=== PATIENT | female | born 1995 | race Caucasian/White ===

== ENCOUNTER 2021-08-27 14:20 | Inpatient (IN) | payer BC, SELFPAY ==
[2021-08-27] VITALS (55 sets, daily range): BP systolic 91–187; BP diastolic 48–153; PULSE 73–96; RESP 18; TEMP 36.4–36.7; O2SAT 95–100; BMI 36.6
--- OUTSIDE RECORDS SUMMARY | 2021-08-27 14:40 | XMS_ITS ---
:1995 Author Allergies Code Code System Name Reaction Severity Status Onset 20360521 RxNorm Biaxin Hives ? Deactivated ? NKDA ? Medications Name Status Start Date Stop Date ? ? Afluria Qd 2019- (36 mos up)(PF)60 Completed ? 03/25/2020 mcg (15 mcg x4)/0.5 mL IM syringe amoxicillin 875 mg-potassium Completed ? clavulanate 125 mg tablet azithromycin 250 mg tablet Completed ? 09/16 bupropion HCl XL 150 mg 24 hr tablet, Active ? Not available extended release bupropion HCl XL 300 mg 24 hr tablet, Completed ? 09/16/2017 extended release cefdinir 300 mg capsule Completed ? 09/17/19 18 clomiphene citrate 50 mg tablet Completed ? 03/17/2018 Colace Unknown ? Not available OTC daily. Colace 100 mg capsule Unknown ? Not availa ble Take 1 capsule twice a day by oral route. for constipation. Epiduo 0.1 %-2.5 % topical gel with Completed ? 09/17/2016 pump ergocalciferol (vitamin D2) 1,250 mcg Completed ? 03/17/2019 (50,000 unit) capsule escitalopram 10 mg tablet Active ? Not av ailable escitalopram 20 mg tablet Completed ? 2017 TAKE ONE TABLET BY MOUTH DAILY etonogestrel 0.12 mg-ethinyl estradiol 0.015 mg/24 hr vaginal ri ng Active ? Not available I 1 RING VAGINALLY Q MONTH fluticasone propionate 50 mcg/actuation nasal spray,suspension C ompleted ? 09/16/2018 PRN
--- OUTSIDE RECORDS SUMMARY | 2021-08-27 14:40 | XMS_ITS ---
:1995 Author Care Team Providers Name Role Phone Menossi Primary Care Provider Unavailable Allergies Code Code System Name Reaction Severity Status Onset 20360521 RxNorm Biaxin Hives ? Deactivated ? NKDA ? Medications Name Status Start Date Stop Date ? ? Afluria Qd 2019- (36 mos Completed ? 03/25 up)(PF)60 mcg (15 mcg x4)/0.5 mL IM syringe amoxicillin 875 mg tablet Active ? Not av ailable TAKE 1 TABLET BY MOUTH EVERY 12 HOURS amoxicillin 875 mg-potassium clavulanate 125 mg tablet Active ? Not available TK 1 T PO Q 12 H azithromycin 250 mg tablet Active ? Not a vailable TK 2 TS PO ON DAY 1, THEN TK 1 T PO D FOR 4 DAYS bupropion HCl XL 150 mg 24 hr tablet, extended release Active ? Not available TK 1 T PO QD bupropion HCl XL 300 mg 24 hr Completed ? tablet, extended release cefdinir 300 mg capsule Completed ? 09/17/19 18 clomiphene citrate 50 mg tablet Completed ? 03/17/2018 Colace Unknown 08/24/2014 Not available OTC daily. Colace 100 mg capsule Unknown 08/24/2014 Not availa ble Take 1 capsule twice a day by oral route. Epiduo 0.1 %-2.5 % topical gel Completed ? 0 09/17/2016 with pump ergocalciferol (vitamin D2) 1,250 Completed ? 03/17/2019 mcg (50,000 unit) capsule escitalopram 10 mg tablet Completed ? 2020 TAKE 1 TABLET BY MOUTH EVERY DAY
--- OUTSIDE RECORDS SUMMARY | 2021-08-27 14:40 | XMS_ITS | Encounter Summary ---
:1995 Author Reason for Visit Injection Assessment and Plan 1. Administration of diphtheria, pertussis, and tetanus vaccine ? Boostrix Tdap 2.5 Lf unit- 8 mcg-5 Lf/0.5 mL intramuscular suspension Discussion Note: None recorded.Patient educational handouts: No information available. Plan of Care Reminders Provider Appointments Teetee duenas, Physical/Annual 10/10/2021 [facility] 11:30AM Lab None ? ? recorded. Referral None ? ? recorded. Procedures None ? ? recorded. Surgeries None ? ? recorded. Imaging None ? ? recorded. Medications Name Start Date ? ? amoxicillin 875 mg tablet ? TAKE 1 TABLET BY MOUTH EVERY 12 HOURS azithromycin 250 mg tablet ? TK 2 TS PO ON DAY 1, THEN TK 1 T PO D FOR 4 DAYS Medications Administered None recorded. Vitals Height 5 ft 5 in Results Lab Results None recorded. Allergies Code Code System Name Reaction Severity Onset NKDA ? ? ? Problems Name Status Onset Date Source ? Acute Sinusitis Active 08/07/2021 ? Onychomycosis of Toenails Active
[2021-08-27] MEDS: LACTATED RINGERS 1,000 ML 125 ML IV CONT ×2 (14:50→15:16)
--- NOTE | 2021-08-27 14:53 | LDADM ---
This patient, Kaila Ho, was admitted to Labor/Delivery/Recovery 106 on 08/27/21 at 14:20. Plans for labor, pain management and were discussed with patient. Patient/family oriented to hospital policies and general routines including ID bracelet, bed and alarms, visiting hours, pain management, procedures, bathroom and other care routines, personal items, smoking policy, room service/diet and guest tray routines, security routines, and visiting hours. Patient/Family are encouraged to report perceived risks to care and to ask questions if they do not understand what they are told or what they should do. See OBIX for further documentation.
[2021-08-27 15:17] LABS: Basophils Percent Auto 0.2 % (0.2-1.2); Eosinophils Absolute Auto 0.1 K/mm3 (0-0.3); Eosinophils Percent Auto 0.9 % (0-4.4); Hematocrit 41.4 % (37.0-47.0); Hemoglobin 13.7 g/dL (12.0-15.0); Immature Granulocyte Absolute 0.07 K/mm3 (0.00-0.031); Immature Granulocyte Percent A 0.6 % (0-0.5); Lymphocytes Absolute Auto 1.72 K/mm3 (0.9-3.2); Lymphocytes Percent Auto 14.8 % (18.3-44.2); Mean Corpuscular HGB Conc 33.1 g/dl (32-36); Mean Corpuscular Hemoglobin 30.4 pg (26-34); Mean Corpuscular Volume 91.8 fl (80-100); Mean Platelet Volume 11.4 fl (7.4-10.4); Monocytes Absolute Auto 0.8 K/mm3 (0.1-0.6); Monocytes Percent Auto 6.6 % (2.6-8.5); Neutrophils Percent Auto 76.9 % (45.5-73.1); Platelet Count Result 259 k/mm3 (150-375); Red Blood Count 4.51 M/mm3 (4.2-5.4); White Blood Count 11.7 K/mm3 (4.5-10.0)
--- NOTE | 2021-08-27 15:39 | P.PNAN_ITS ---
Anes - Eval Pre Procedure Procedure: labor epidural Date/Time: 08/27/21 15:39 Preop Diagnosis: labor pain Pre Op Diagnosis: Labor Patient Data Age: 25 Gender: F Height: 1.65 m Weight: 100 kg Last Vital Signs Pulse 96 08/27/21 15:31 BP 152/91 H 08/27/21 15:31 Allergies Allergy/AdvReac Type Severity Reaction Status Date / Time clarithromycin Allergy Intermediate HIVES Verified 01/09/19 12:25 Home Medications Medication Instructions Recorded Confirmed Type PNV cmb#95-ferrous fumarate-FA 1 tablet PO DAILY 07/31/21 08/27/21 History [] Laboratory Tests 08/27/21 08/27/21 14:49 14:49 WBC 11.7 K/mm3 H K/mm3 (4.5-10.0) RBC 4.51 M/mm3 M/mm3 (4.2-5.4) Hgb 13.7 g/dL g/dL (12.0-15.0) Hct 41.4 % % (37.0-47.0) MCV 91.8 fl fl (80-100) MCH 30.4 pg pg (26-34) MCHC 33.1 g/dl g/dl (32-36) RDW 14.0 % % (11.5-14.5) Plt Count 259 k/mm3 k/mm3 (150-375) MPV 11.4 fl H fl (7.4-10.4) Immature Gran % (Auto) 0.6 % H % (0-0.5) Neut % (Auto) 76.9 % H % (45.5-73.1) Lymph % (Auto) 14.8 % L % (18.3-44.2) [place] % (Auto) 6.6 % % (2.6-8.5) Eos % (Auto) 0.9 % % (0-4.4) Baso % (Auto) 0.2 % % (0.2-1.2) Lymph # (Auto) 1.72 K/mm3 K/mm3 (0.9-3.2) [place] # (Auto) 0.8 K/mm3 H K/mm3 (0.1-0.6) Eos # (Auto) 0.1 K/mm3 K/mm3 (0-0.3) Baso # (Auto) 0.0 K/mm3 K/mm3 (0.0-0.1) Abs Immat Gran (auto) 0.07 K/mm3 H K/mm3 (0.00-0.031) Absolute Neuts (auto) 9.0 K/mm3 H K/mm3 (1.3-6.7) Absolute Nucleated RBC 0.0 K/mm3 K/mm3 (0.0-0.012) Nucleated RBC % 0.0 % % (0.0-0.2) RPR Pending Patient hx anesthesia problems: none Family hx anesthesia problems: none Results Review: All pre-operative results and documents have been reviewed as part of the pre-operative evaluation. [facility] Family History Family History (Updated 07/31/21 @ 15:02 by Fredi Wasserman RN) Mother Diabetes mellitus Social History Social History Smoking status: Never smoker Substance use: never Spiritual care concerns: No Exam Day of Procedure 08/27/21 15:39
--- NOTE | 2021-08-27 15:58 | PM.IMHP ---
H&P: HPI History of Present Illness Date/Time: 08/27/21 15:58 25 yo at 40 weeks in labor. Chief Complaint: term iup in labor Review of Systems Review of Systems: All systems reviewed & are unremarkable except as noted in HPI and below PMFSH Family History Family History Mother Diabetes mellitus Social History Social History Smoking status: Never smoker Substance use: never Spiritual care concerns: No Meds Home Medications and Allergies Home Medications Medication Instructions Recorded Confirmed Type PNV cmb#95-ferrous fumarate-FA 1 tablet PO DAILY 07/31/21 08/27/21 History [] Allergies Allergy/AdvReac Type Severity Reaction Status Date / Time clarithromycin Allergy Intermediate HIVES Verified 01/09/19 12:25 Vital Signs Vital Signs - 24 hr 08/27/21 15:01 08/27/21 15:16 08/27/21 15:31 Pulse Rate 91 91 96 Blood Pressure 123/65 153/96 H 152/91 H Pulse Oximetry 08/27/21 15:44 08/27/21 15:46 08/27/21 15:49 Pulse Rate 96 Blood Pressure 139/83 Pulse Oximetry 100 99 08/27/21 15:50 08/27/21 15:51 08/27/21 15:53 Pulse Rate 90 90 83 Blood Pressure 138/79 120/69 140/78 Pulse Oximetry 08/27/21 15:54 08/27/21 15:56 Pulse Rate 88 Blood Pressure 143/91 H Pulse Oximetry 99 Exam Const: General: no acute distress Eyes: General: appearance normal, both eyes and all related structures Neck: Neck: supple and no JVD Thyroid: thyroid normal Resp: Effort & Inspection: normal respiratory effort Auscultation: clear to auscultation bilaterally Cardio: Rate: regular rate Rhythm: regular rhythm GI: Inspection: non-distended GI Palp: Yes Soft to palpation, No Tenderness to palpation present (GI) and No Guarding due to palpation present (GI) Auscultation: normal bowel sounds : External Female Exam: normal external appearance Speculum Exam - Vagina: normal appearance of the vagina Speculum Exam - Cervix: normal appearance of the cervix (cx 5/90/-1. arom clear. fhts ok) Skin: General skin exam: no rashes or lesions noted Extrem: General: normal to inspection and no edema Psych: Mental Status: mental status grossly normal Affect: normal affect H&P: Results Labs Labs: Short CBC 08/27/21 Range/Units 14:49 WBC 11.7 H (4.5-10.0) K/mm3 Hgb 13.7 (12.0-15.0) g/dL Hct 41.4 (37.0-47.0) % Plt Count 259 (150-375) k/mm3 Assessment and Plan Additional Plan term iup in active labor PLAN: expected
[2021-08-27] MEDS: OXYTOCIN 30 UNITS/NS 500 ML 30 UNITS/500 ML BAG 999 UNITS IV CONT (16:38)
--- NOTE | 2021-08-27 17:12 | PM.OBPRVD ---
OB - Delivery Note Procedure Delivery date: 08/27/21 Induction method: None Delivery monitor: External FHT Route of delivery: Episiotomy description: None Laceration Description: Perineal - 1st Degree Delivery repair: vicryl Specimen: No Quantitative Blood Loss (ml): 59 Anesthesia type: Epidural Disposition: Floor Baby Date of : 08/27/21 Time of : 16:58 Weeks of gestation at delivery: 40 gender: Male presentation: vertex position: Right Occiput Anterior Cord Vessel Description: 3 Vessels score one minute: 8 score five minutes: 9
[2021-08-27] MEDS: OXYTOCIN 30 UNITS/NS 500 ML 30 UNITS/500 ML BAG 125 UNITS IV CONT (17:29)
[2021-08-27] MEDS: BENZOCAINE 20% AER SPR (*SP) 56 GM CAN 1 SPRAY TOPICAL (19:35)
[2021-08-27] MEDS: WITCH HAZEL 40 PADS 1 PAD TOPICAL (19:35)
[2021-08-27] MEDS: LANOLIN (LANSINOH) 7.5 GM CREAM 1 APPLIC TOPICAL (23:45)
[2021-08-28 03:58] VITALS: BP 112/61; PULSE 83; RESP 18; TEMP 36.3; O2SAT 98
[2021-08-28 04:19] LABS: Hematocrit 37.8 % (37.0-47.0); Hemoglobin 12.5 g/dL (12.0-15.0)
[2021-08-28 07:40] VITALS: BP 113/60; PULSE 94; RESP 18; TEMP 36.8; O2SAT 97
--- NOTE | 2021-08-28 07:41 | PM.OBPNVD ---
OB - PN: Subj Subjective Date/time seen: 08/28/21 07:41 Patient comments: no complaints and pain well controlled baby status: doing well OB - PN: Obj Data Labs CBC & Chem 7: 08/28/21 03:27 Labs: Laboratory Results - last 24 hr 08/27/21 08/27/21 08/28/21 14:49 14:49 03:27 WBC 11.7 H RBC 4.51 Hgb 13.7 12.5 Hct 41.4 37.8 MCV 91.8 MCH 30.4 MCHC 33.1 RDW 14.0 Plt Count 259 MPV 11.4 H Immature Gran % (Auto) 0.6 H Neut % (Auto) 76.9 H Lymph % (Auto) 14.8 L [place] % (Auto) 6.6 Eos % (Auto) 0.9 Baso % (Auto) 0.2 Lymph # (Auto) 1.72 [place] # (Auto) 0.8 H Eos # (Auto) 0.1 Baso # (Auto) 0.0 Abs Immat Gran (auto) 0.07 H Absolute Neuts (auto) 9.0 H Absolute Nucleated RBC 0.0 Nucleated RBC % 0.0 Blood Type O Positive Antibody Screen Negative OB - PN A/P Plan day: 1 Plan: routine care Time Spent With Patient Time: Total time spent is greater than 50% in coordination of care (as documented) at patient's floor/unit and/or counseling patient: Time with patient: less than 15 minutes Review of Systems Review of Systems: All systems reviewed & are unremarkable except as noted in HPI and below Exam Const: General: no acute distress Eyes: General: appearance normal, both eyes and all related structures Neck: Neck: supple and no JVD Thyroid: thyroid normal Resp: Effort & Inspection: normal respiratory effort Auscultation: clear to auscultation bilaterally Cardio: Rate: regular rate Rhythm: regular rhythm GI: Inspection: non-distended GI Palp: Yes Soft to palpation, No Tenderness to palpation present (GI) and No Guarding due to palpation present (GI) Auscultation: normal bowel sounds : General: Yes bladder normal to palpation External Female Exam: normal external appearance Speculum Exam - Vagina: normal vaginal discharge and No vaginal bleeding Speculum Exam - Cervix: nontender Bimanual exam- vagina & uterus: bladder normal to palpation and No Cervical tenderness present OB/external & speculum: No vaginal bleeding Skin: General skin exam: no rashes or lesions noted Extrem: General: normal to inspection and no edema Psych: Mental Status: mental status grossly normal Affect: normal affect
--- NOTE | 2021-08-28 07:50 | PC.NURSE ---
PT introductions made and plan of care discussed per post , pain management, breast bottle feeding, daily care activities and pending discharge to home. PT and spouse both recipients of such instructions. PT shows no evidence of a barrier to learning at this time. PT received such instructions this shift thru mom baby care guide, one to one discussion and demonstrations. PT verbalized understanding of such care.
--- NOTE | 2021-08-28 07:55 | PM.DS ---
DS: Admitting Diagnosis Discharge Date 08/28/2021 Admitting Diagnosis term in active labor DS: Summary Hospital Course Hospital Course: the patient was admitted in active labor and underwent spontaneous vaginal delivery on 08/27/2021. Her 24hour course was unremarkable. She remained afebrile, she was voiding without difficulty, ambulating, generally without complaints. She was comfortable with that. Time Spent with Patient Time attestation: Total time spent providing and/or coordinating discharge services: Exam Const: General: no acute distress Eyes: General: appearance normal, both eyes and all related structures Neck: Neck: supple and no JVD Thyroid: thyroid normal Resp: Effort & Inspection: normal respiratory effort Auscultation: clear to auscultation bilaterally Cardio: Rate: regular rate Rhythm: regular rhythm GI: Inspection: non-distended GI Palp: Yes Soft to palpation, No Tenderness to palpation present (GI) and No Guarding due to palpation present (GI) Auscultation: normal bowel sounds : General: Yes bladder normal to palpation External Female Exam: normal external appearance Speculum Exam - Vagina: normal vaginal discharge and No vaginal bleeding Speculum Exam - Cervix: nontender Bimanual exam- vagina & uterus: bladder normal to palpation and No Cervical tenderness present OB/external & speculum: No vaginal bleeding Skin: General skin exam: no rashes or lesions noted Extrem: General: normal to inspection and no edema Psych: Mental Status: mental status grossly normal Affect: normal affect DS: Data Data Completed and Pending Labs on day of discharge: Labs from last 24 hours 08/28/21 08/27/21 08/27/21 03:27 14:49 14:49 WBC RBC Hgb 12.5 Hct 37.8 MCV MCH MCHC RDW Plt Count MPV Immature Gran % (Auto) Neut % (Auto) Lymph % (Auto) [place] % (Auto) Eos % (Auto) Baso % (Auto) Lymph # (Auto) [place] # (Auto) Eos # (Auto) Baso # (Auto) Abs Immat Gran (auto) Absolute Neuts (auto) Absolute Nucleated RBC Nucleated RBC % RPR Pending Blood Type O Positive Antibody Screen Negative 08/27/21 14:49 WBC 11.7 H RBC 4.51 Hgb 13.7 Hct 41.4 MCV 91.8 MCH 30.4 MCHC 33.1 RDW 14.0 Plt Count 259 MPV 11.4 H Immature Gran % (Auto) 0.6 H Neut % (Auto) 76.9 H Lymph % (Auto) 14.8 L [place] % (Auto) 6.6 Eos % (Auto) 0.9 Baso % (Auto) 0.2 Lymph # (Auto) 1.72 [place] # (Auto) 0.8 H Eos # (Auto) 0.1 Baso # (Auto) 0.0 Abs Immat Gran (auto) 0.07 H Absolute Neuts (auto) 9.0 H Absolute Nucleated RBC 0.0 Nucleated RBC % 0.0 RPR Blood Type Antibody Screen Discharge Plan Discharge Attending physician on discharge: Tyrone Monterroso Discharging Clinician: Tyrone Monterroso Patient Disposition: Home, Self-Care Activity: may shower, no straining and pelvic rest Diet: heart healthy Wound Care Instructions: follow printed instructions Patient Instructions: Antibiotic Form Stand Alone Forms: General Discharge Information Follow-up/Referrals: Tyrone Monterroso MD [Physician] - Discharge Medications: No Action PNV cmb#95-ferrous fumarate-FA [] 28 mg iron- 800 mcg Tablet 1 tablet PO DAILY RF: 0 Date of admission: 08/27/21 14:20 Primary Care Provider: FlorecitaTeetee Admitting Provider: Tyrone Monterroso Attending physician on admission: Tyrone Monterroso Condition: Stable
[2021-08-28 08:35] LABS: Rapid Plasma Reagin Non-Reactive (NonReactive)
[2021-08-28] MEDS: DOCUSATE SODIUM 100 MG CAPSULE PO (10:08)
[2021-08-28] MEDS: IBUPROFEN 600 MG TABLET PO (10:09)
[2021-08-28] MEDS: MULTIVIT/MIN/PREN/FOL AC/IRON TABLET 1 TAB PO (10:09)
--- NOTE | 2021-08-28 11:13 | PC.NURSE ---
Addendum entered by Gloria Salinas RN 08/28/21 11:15: Patient voiced understanding of pumping 8 times in 24 hours with 1-2 times at night. Original Note: [id number] Breast pump provided due to mother's preference to pump and feed. Instructions given on cleaning, care, usage, there should be no pain, pumping schedule for milk production, collection, and storage of human milk. Parents are encouraged to record pumping schedule on the feeding sheet. Patient was assessed for correct placement, flange size, to pump for comfort and nipple stretching/stimulation for adequate milk production. Mother voiced understanding of the education shared. Reported to the primary RN.
[2021-08-28 11:32] VITALS: BP 104/55; PULSE 88; RESP 18; TEMP 36.8; O2SAT 97
[2021-08-28 16:45] VITALS: BP 120/70; PULSE 87; RESP 18; TEMP 36.6
--- NOTE | 2021-08-28 17:27 | PC.NURSE ---
Patient viewed the discharge video Mother & Baby Care, The First Two Weeks . Patient was given the opportunity and encouraged to ask questions. Patient verbalized understanding of information shared and has been given the mother/baby guide for home reference.
[2021-08-29 08:55] VITALS: BP 120/72; PULSE 96; RESP 16; TEMP 37; O2SAT 98
== END 2021-08-28 18:14 | disposition home or self-care (01) | DRG 807 ==
LOC: ANHLDR 15:26 → ANHOB2 19:55
PROVIDERS: Admitting Provider Obstetrics & Gynecology; PCP Physician Assistant; Visit Provider Obstetrics & Gynecology
DX: O76 Abnormality in fetal heart rate and rhythm complicating labor and delivery (principal); Z37.0 Single live birth; O70.0 First degree perineal laceration during delivery; Z3A.40 40 weeks gestation of pregnancy
CPT/HCPCS: 36415; 85014; 85018; 85025; 86592; 86850; 86900; 86901; A9270; J2590; J2795; J7120

== ENCOUNTER 2021-10-31 18:19 | Emergency (ER) | payer BC, SELFPAY ==
[2021-10-31 18:30] VITALS: BP 118/73; PULSE 109; RESP 18; TEMP 37.3; O2SAT 98
--- NOTE | 2021-10-31 18:30 | ED.GENADULT ---
HPI - General Adult General Chief complaint: Skin/Abscess/Foreign Body Stated complaint: lt breast tender,chills,headache Time Seen by Provider: 10/31/21 18:30 Source: patient and RN notes reviewed Mode of arrival: ambulatory Limitations: no limitations History of Present Illness HPI narrative: 25-year-old female presents to the [facility] with I think I have mastitis. Has had redness, headache for the last day. States she is applying warm compresses and taking Tylenol with no relief. Noticed the redness today. Patient is currently breast-feeding Related Data Home Medications Medication Instructions Recorded Confirmed norethindrone (contraceptive) 0.35 0.35 mg DAILY 10/31/21 10/31/21 mg tablet Allergies Allergy/AdvReac Type Severity Reaction Status Date / Time clarithromycin Allergy Intermediate HIVES Verified 10/31/21 18:34 Review of Systems Review of Systems: All systems reviewed & are unremarkable except as noted in HPI and below Constitutional: Constitutional: Reports no additional constitutional complaints, Denies chills and Denies fever(s) Eyes: Eyes: Reports no additional eye complaints ENT: Reports system reviewed and no additional complaints, except as documented Cardiovascular: Cardiovascular: Reports no additional cardiovascular complaints Respiratory: Respiratory: Reports no additional respiratory complaints Gastrointestinal: Gastrointestinal: Reports no additional gastrointestinal complaints Musculoskeletal: Musculoskeletal: Reports no additional musculoskeletal complaints Integumentary/Breasts: Skin/Breast: Reports as per HPI and Reports erythema (Right breast) Neurologic: Reports system reviewed and no additional complaints, except as documented Psychiatric: Psychiatric: Reports no additional psychiatric complaints Allergic/Immunologic: Allergic/Immunologic: Reports no additional allergic/immunologic complaints [facility] Past Medical History Medical History Patient denies medical problems Surgical History Surgical History No history of previous surgery Family History Family History Mother Diabetes mellitus Social History Social History Smoking status: Never smoker Substance use: never Spiritual care concerns: No Comments At the time of my signature, I reviewed and agree with the nursing past medical, surgical, social, and family history. There is no relevant family history pertinent to the patient complaint. Exam Const: General: healthy appearing, no acute distress and alert Nutritional Appearance: well nourished Orientation/consciousness: patient oriented x3 Limitations: no limitations HENMT: Head: normal to inspection Ears: external ears normal Eyes: General: appearance normal, both eyes and all related structures Pupils: Equal, round and reactive pupils present Neck: Neck: normal visual inspection, no lymphadenopathy and no meningeal signs Chest: Chest palpation & inspection: normal inspection of the chest Resp: Effort & Inspection: normal respiratory effort and no use of accessory muscles Auscultation: clear to auscultation bilaterally, no crackles, no rales, no rhonchi and no wheezes Cardio: Rate: regular rate Rhythm: regular rhythm GI: GI Palp: Yes Soft to palpation and No Tenderness to palpation present (GI) Back/Spine/Pelvis: Cervical Spine: normal cervical lordosis Thoracic/Lumbar Spine: thoracic and lumbar spine normal to inspection Skin: General skin exam: normal color Rashes: no rashes Wounds: no wounds Other: Redness and increased warmth without swelling or signs of an abscess noted to the right lower and medial breast. Neuro: General: patient oriented x3, moves all extremities, no meningeal signs and no focal motor defi
== END 2021-10-31 18:40 | disposition home or self-care (01) ==
PROVIDERS: Emergency Provider Nurse Practitioner; PCP Physician Assistant
DX: N61.0 Mastitis without abscess (principal); J45.990 Exercise induced bronchospasm; Z86.16 Personal history of COVID-19
CPT/HCPCS: 99213; G0463

== ENCOUNTER → 2022-06-08 15:40 | Outpatient (CLI) | payer BC, SELFPAY ==
--- NOTE | ~2022-06-08 | US_ITS ---
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 COMPARISON: No prior studies for comparison. FINDINGS: The right thyroid lobe measures 6.3 x 2.2 x 2.1 cm. The left thyroid lobe measures 5.9 x 2 x 1.7 cm. There is heterogeneous echotexture and echogenicity throughout the thyroid gland. No discr ete nodules identified. Increased vascular flow is present. There is a small 2 mm right thyroid cyst. IMPRESSION: 1. Enlarged heterogeneous thyroid gland with increased vascularity, consistent with Morteza's 5 th yroiditis. Reviewed, dictated and finalized at location B. EW TRAINER IMPRESSION: 1. Enlarged heterogeneous thyroid gland with increased vascularity, consistent with Morteza's 5 thyroiditis.
== END ==
PROVIDERS: PCP Physician Assistant; Visit Provider Physician Assistant
DX: E06.3 Autoimmune thyroiditis (principal)
CPT/HCPCS: 76536

== ENCOUNTER 2024-01-05 08:52 | Emergency (ER) | payer BC, SELFPAY ==
[2024-01-05 09:09] VITALS: BP 118/70; PULSE 100; RESP 16; TEMP 37.2; O2SAT 100
--- NOTE | 2024-01-05 09:14 | ED.URI ---
HPI - URI/Sore Throat General Chief Complaint: Upper Respiratory Infection Stated Complaint: covid test Time Seen by Provider: 01/05/24 09:14 Source: patient Mode of arrival: ambulatory Limitations: no limitations History of Present Illness HPI Narrative: 28-year-old female presents with complaint nasal congestion, cough, fatigue, fever. Symptoms for 5 days. Fever for 48 hours now resolved. Taking [id number] Tylenol Sinus medication. Patient states feeling better today. Wanted to get to see what is going prior to going to [place] next week. Denies chest pain shortness of breath. No nausea vomiting diarrhea. All systems reviewed and negative except as noted above. Related Data Home Medications Medication Instructions Recorded Confirmed etonogestrel 0.12 mg-ethinyl See Rx Instructions .Route .COMPLEX 01/05/24 01/05/24 estradiol 0.015 mg/24 hr vaginal ring (EluRyng) levothyroxine 75 mcg tablet 75 mcg PO DAILY 01/05/24 01/05/24 sertraline 50 mg tablet 50 mg PO DAILY 01/05/24 01/05/24 Allergies Allergy/AdvReac Type Severity Reaction Status Date / Time clarithromycin AdvReac Mild HIVES Verified 01/05/24 09:00 Review of Systems Review of Systems: CONSTITUTIONAL: Reports fever, chills, or sweats. Reports fatigue. EYES: Denies visual changes, redness, or discharge. ENT: reports rhinorrhea, congestion. Denies sore throat, or otalgia. CARDIOVASCULAR: Denies chest pain, palpitations, or edema. RESPIRATORY: reports cough. Denies dyspnea. GASTROINTESTINAL: Denies abdominal pain, nausea, vomiting, or diarrhea. GENITOURINARY: Denies dysuria or hematuria. SKIN: Denies rash or itching. MUSCULOSKELETAL: Denies back pain, joint pain, or myalgia. NEUROLOGIC: Denies headache, numbness, or weakness. PSYCHIATRIC: Denies anxiety or depression. All other systems reviewed are negative, except as documented in HPI. FORMERLY [facility], [facility]–1983 Past Medical History Medical History Patient denies medical problems Surgical History Surgical History No history of previous surgery Family History Family History Mother Diabetes mellitus Social History Social History Smoking status: Never smoker Substance use: never Spiritual care concerns: No Comments At time of signature, agree with nursing past medical, surgical, social and family history. There is no relevant family history pertinent to the presenting complaint. Exam Narrative: GENERAL: This is a well-nourished, well-developed patient, in no apparent distress. HEAD: normocephalic, atraumatic. EYES: PERRL. Sclera clear/white. Vision is grossly intact. EARS: External ears normal, auditory canals clear and without drainage, TMs normal without perforation. Hearing grossly intact. NOSE: External nose normal with mild congestion, clear nasal drainage, erythema to bilateral nares without significant swelling. THROAT: Mucous membranes moist, Clear postnasal drainage without erythema swelling or exudates. NECK: Neck supple, non-tender without lymphadenopathy, masses or thyromegaly. CARDIOVASCULAR: Regular rate and rhythm without murmurs, gallops, or rubs. RESPIRATORY: Clear to auscultation. Breath sounds equal bilaterally. No wheezes, rales, or rhonchi. SKIN: warm, Dry, intact with no suspicious lesions or rash, good texture and turgor. NEURO: awake, alert, and oriented to person, place and time. There were no obvious focal neurologic abnormalities. EXTREMITIES: No joint tenderness, effusion, or edema noted. Course Course Level of Care: Express Care Visit Vital Signs Vital signs: Vital Signs Temperature 37.2 C 01/05/24 09:09 Pulse Rate 100 01/05/24 09:09 Respiratory Rate 16 01/05/24 09:09 Blood Pressure 118/70 01/05/24 09:
[2024-01-05 09:28] LABS: EDCOVIDSCREEN Negative (Negative); EDINFLUASCREEN Negative (Negative); EDINFLUBSCREEN Negative (Negative)
== END 2024-01-05 09:31 | disposition home or self-care (01) ==
PROVIDERS: Emergency Provider Nurse Practitioner Family; PCP Physician Assistant
DX: J06.9 Acute upper respiratory infection, unspecified (principal); R05.9 Cough, unspecified; Z20.822 Contact with and (suspected) exposure to COVID-19
CPT/HCPCS: 87426; 87804; 99213; G0463

== ENCOUNTER 2024-02-17 13:39 | Outpatient (CLI) | payer BC, SELFPAY | END 2024-02-17 13:40 | disposition home or self-care (01) | LOC: ANHAUDIO 13:41 | PROVIDERS: PCP Physician Assistant; Visit Provider Otolaryngology | DX: H93.A2 Pulsatile tinnitus, left ear (principal); H65.492 Other chronic nonsuppurative otitis media, left ear | CPT/HCPCS: 92557; 92567 ==

== ENCOUNTER 2024-03-06 08:40 | Outpatient (CLI) | payer BC, SELFPAY ==
--- NOTE | ~2024-03-06 | MR_ITS ---
EXAMINATION: MRA brain wo con DATE: 03/06/2024 09:16 INDICATION: Left-sided pulsatile tinnitus. Other chronic nonsuppurative otitis media, left. TECHNIQUE: Magnetic resonance angiography (MRA) of the brain was performed without intravenous contra st with T1-weighted SPGR by the 3D [id number] technique. Maximum intensity projection 3D-reconstr uctions were obtained. COMPARISON: None. FINDINGS: There is no significant stenosis of basilar artery or the posterior cerebral arteries. There is no si gnificant stenosis of the intracranial internal carotid arteries or anterior or middle cerebral arter ies. Anterior communicating artery is normal. The posterior communicating arteries are normal. There is no aneurysm. IMPRESSION: 1. Normal MRA. Reviewed, dictated and finalized at location [facility] IMPRESSION: 1. Normal MRA.
== END 2024-03-06 08:41 | disposition home or self-care (01) ==
LOC: MICIMG 08:41
PROVIDERS: PCP Physician Assistant; Visit Provider Otolaryngology
DX: H93.A2 Pulsatile tinnitus, left ear (principal); H65.492 Other chronic nonsuppurative otitis media, left ear
CPT/HCPCS: 70544